=== PATIENT | female | born 1975 | race Caucasian/White ===

== ENCOUNTER → 2017-03-11 | Outpatient (CLI) | payer OTHER ==
[~2017-03-11] MED LIST: HYDR-3240 PO; IBUP-1222 PO; OXYC-302 PO
== END | disposition home or self-care (01) ==
LOC: CFH 12:38
PROVIDERS: ATTEND Nurse Practitioner
DX: Z12.31 Encounter for screening mammogram for malignant neoplasm of breast (principal); N64.89 Other specified disorders of breast
CPT/HCPCS: 77067

== ENCOUNTER 2019-09-05 14:18 | Outpatient (CLI) | payer OTHER | END 2019-09-05 23:59 | disposition home or self-care (01) | LOC: CFH 14:18 | PROVIDERS: ATTEND Clinical Nurse Specialist Women's Health | DX: N64.4 Mastodynia (principal); R92.2 Inconclusive mammogram | CPT/HCPCS: 77066; G0279 ==

== ENCOUNTER 2020-10-01 13:03 | Outpatient (CLI) | payer OTHER ==
[~2020-10-01 13:03] MED LIST changes: +HYDR-2214 PO; -HYDR-3240 PO; -OXYC-302 PO; +OXYC1TAB12 PO
[2020-10-01] MEDS ORDERED: ASCO100018 PO (13:32)
[2020-10-01] MEDS ORDERED: L.AC1CAP6 PO (13:32)
[2020-10-01] MEDS ORDERED: IMIP10TA2 PO (13:32)
[2020-10-01] MEDS ORDERED: Ginkgo Biloba PO (13:32)
[2020-10-01] MEDS ORDERED: COLLAGEN PO (13:32)
[2020-10-01] MEDS ORDERED: B CO1TAB14 PO (13:32)
[2020-10-01] MEDS ORDERED: BIOTIN PO (13:32)
[2020-10-01 13:58] LABS: BASOPHILS % (AUTO) 0 % (0-1); EOSINOPHILS % (AUTO) 2 % (1-7); LYMPHOCYTES % (AUTO) 34 % (22-44); MEAN CORPUSCULAR HEMOGLOBIN 31.7 pg (27.0-34.8); MEAN CORPUSCULAR HGB CONC 33.5 g/dL (32.4-35.8); MEAN PLATELET VOLUME 7.8 fL (7.4-10.4); MONOCYTES % (AUTO) 5 % (2-9); NEUTROPHILS % (AUTO) 59 % (42-75); PLATELET COUNT 194 x10^3/uL (130-400); RED BLOOD COUNT 4.36 x10^6/uL (3.82-5.3); RED CELL DISTRIBUTION WIDTH 13.6 % (9.6-15.2)
[2020-10-01 14:02] LABS: MICROSCOPIC AUTO
[2020-10-01 14:05] LABS: ALBUMIN 3.7 g/dL (3.4-5.0); ANION GAP 4 mmol/L (5-15); CALCIUM 8.5 mg/dL (8.5-10.1); CHLORIDE 105 mmol/L (98-107)
[2020-10-01 14:10] LABS: ALANINE AMINOTRANSFERASE 44 U/L (12-78); ALKALINE PHOSPHATASE 61 U/L (45-117); BILIRUBIN,TOTAL 0.7 mg/dL (0.2-1.0); CREATININE 0.74 mg/dL (0.55-1.02); TOTAL PROTEIN 7.5 g/dL (6.4-8.2)
[2020-10-04] MEDS ORDERED: OXYC1TAB12 PO (10:38)
== END 2020-10-01 23:59 | disposition home or self-care (01) ==
LOC: STAR 13:03
PROVIDERS: ATTEND Obstetrics & Gynecology
DX: Z01.818 Encounter for other preprocedural examination (principal); N81.89 Other female genital prolapse
CPT/HCPCS: 36415; 80053; 81001; 84702; 85025

== ENCOUNTER 2020-10-04 05:39 | Day surgery (SDC) | payer OTHER ==
[~2020-10-04] VITALS: Ht 172.7 cm; Wt 90.1 kg
[~2020-10-04 05:39] MED LIST changes: +ASCO100018 PO; +B CO1TAB14 PO; +BIOTIN PO; +COLLAGEN PO; +Ginkgo Biloba PO; +IMIP10TA2 PO; +L.AC1CAP6 PO; -OXYC1TAB12 PO; +OXYC1TAB14 PO
[2020-10-04] MEDS ORDERED: EPINEPHRINE 1 MG/ML, 1ML ONE (06:34)
[2020-10-04] MEDS ORDERED: BUPIVACAINE 0.25% ONE (06:34)
[2020-10-04] MEDS ORDERED: FLUORESCEIN SODIUM 500 MG/5 ML ONE (06:34)
[2020-10-04 06:42] VITALS: BP 146/98
[2020-10-04] MEDS ORDERED: FENTANYL PF 250 MCG/5ML ONE ×2 (06:54→08:39)
[2020-10-04] MEDS ORDERED: MIDAZOLAM 1 MG/ML, 2ML ONE (06:54)
[2020-10-04] MEDS ORDERED: KETOROLAC 30 MG/1 ML ONE (06:57)
[2020-10-04] MEDS ORDERED: CHLORHEXIDINE 15 ML UDC PO ONE (07:00)
[2020-10-04] MEDS ORDERED: LACTATED RINGERS 1,000 ML IV SCH (07:00)
[2020-10-04] MEDS ORDERED: ACETAMINOPHEN 325 MG TABLET PO PRN (07:30)
[2020-10-04] MEDS ORDERED: OXYcodone 5 MG/5 ML ORAL.SOL UDC PO PRN (07:30)
[2020-10-04] MEDS ORDERED: hydrALAzine 20 MG/ML, 1ML IV PRN (07:30)
[2020-10-04] MEDS ORDERED: MEPERIDINE/PF 25MG/0.5ML IVPush PRN (07:30)
[2020-10-04] MEDS ORDERED: morphine SULFATE 10 MG/ML, 1ML IVPush PRN (07:30)
[2020-10-04] MEDS ORDERED: FENTANYL PF 100 MCG/2ML IV PRN (07:30)
[2020-10-04] MEDS ORDERED: HYDROmorphone 1 MG/ML, 1ML INJ IVPush PRN (07:30)
[2020-10-04] MEDS ORDERED: LABETALOL 5MG/ML, 20ML IV PRN (07:30)
[2020-10-04] MEDS ORDERED: HALOPERIDOL 5 MG/ML IV PRN (07:30)
[2020-10-04] MEDS ORDERED: PROMETHAZINE 25 MG/ML, 1ML IVPush PRN (07:30)
[2020-10-04] MEDS ORDERED: ONDANSETRON 2MG/ML, 2ML ONE (08:39)
[2020-10-04] MEDS ORDERED: ROCURONIUM 10MG/ML,5ML ONE (08:39)
[2020-10-04] MEDS ORDERED: GLYCOPYRROLATE 0.2MG/1ML, 5ML ONE (08:39)
[2020-10-04] MEDS ORDERED: NEOSTIGMINE 1 MG/ML, 10ML ONE (08:39)
[2020-10-04] MEDS ORDERED: PROPOFOL 10 MG/ML, 20ML ONE (08:39)
[2020-10-04] MEDS ORDERED: DEXAMETHASONE 4 MG/ML, 1ML ONE (08:39)
[2020-10-04] MEDS ORDERED: CEFAZOLIN 1,000 MG ONE (08:39)
[2020-10-04] MEDS ORDERED: FENTANYL PF 100 MCG/2ML ONE (09:30)
[2020-10-04] MEDS ORDERED: OXYC1TAB14 PO (10:38)
[2020-10-04] MEDS ORDERED: IBUP-1222 PO (10:38)
[2020-10-04] MEDS ORDERED: MEPERIDINE/PF 25MG/ML,1ML ONE (10:39)
[2020-10-04] MEDS ORDERED: OXYcodone 5 MG/5 ML ORAL.SOL UDC ONE (10:39)
== END 2020-10-04 15:35 | disposition home or self-care (01) ==
LOC: OUT 05:39
PROVIDERS: ATTEND Obstetrics & Gynecology
DX: N81.4 Uterovaginal prolapse, unspecified (principal); N88.9 Noninflammatory disorder of cervix uteri, unspecified; N80.0 Endometriosis of uterus; D25.9 Leiomyoma of uterus, unspecified; N81.89 Other female genital prolapse; N92.0 Excessive and frequent menstruation with regular cycle; F32.9 Major depressive disorder, single episode, unspecified; Z79.899 Other long term (current) drug therapy; Z97.5 Presence of (intrauterine) contraceptive device
CPT/HCPCS: 36415; 58260; 81025; 86850; 86900; 88305; J0171; J0690; J1100; J1885; J2175; J2250; J2405; J2704; J2710; J3010; J7120